=== PATIENT | male | born 1990 | race Caucasian/White ===

== ENCOUNTER 2022-06-23 19:19 | Emergency (ER) | payer OTHER, BC ==
[2022-06-23 20:22] LABS: Bilirubin Neg (Negative); Blood, Urine Negative (Negative); Clarity Clear (Clear); Glucose, Urine (Dipstick) Normal (Negative); Ketone, Urine Negative (Negative); Leukocyte 25 (Negative); Nitrite Negative (Negative); Protein, Urine (Dipstick) 15 mg/dl (Neg-Trace); Specific Gravity, Urine 1.025 (1.002-1.036)
[2022-06-23] MEDS ORDERED: cefTRIAXone\\ROCEPHIN 500 MG VIAL ONE (20:22)
[2022-06-23] MEDS ORDERED: Azithromycin 250 MG TAB ONE (20:22)
[2022-06-23] MEDS ORDERED: Boostrix 0.5 ML (Tdap) VIAL ONE (20:23)
[2022-06-23 20:40] LABS: Bacteria/HPF Rare-Few HPF (None Seen); Mucous/LPF 1+ LPF (<2+); RBC/HPF 0-3 HPF (0-3); Sperm/HPF 1+ HPF (None Seen); Squamous Epithelial 0-3 HPF (0-3)
[2022-06-24 10:29] LABS: Chlam.trachomatis by PCR,Urine Not Detected (NotDetected)
== END 2022-06-23 20:50 | disposition home or self-care (01) ==
LOC: CSHERS 19:19
DX: S51.851A Open bite of right forearm, initial encounter (principal); S61.251A Open bite of left index finger without damage to nail, initial encounter; S61.255A Open bite of left ring finger without damage to nail, initial encounter; N34.2 Other urethritis; A60.00 Herpesviral infection of urogenital system, unspecified; F17.210 Nicotine dependence, cigarettes, uncomplicated; W54.0XXA Bitten by dog, initial encounter; Z79.899 Other long term (current) drug therapy; Z23 Encounter for immunization
CPT/HCPCS: 81003; 81015; 87491; 87591; 90471; 90715; 96372; 99283; J0696